=== PATIENT | male | born 1970 | race Hispanic/Latino ===

== ENCOUNTER 2022-06-27 11:44 | Emergency (ER) | payer SELFPAY ==
[2022-06-27 12:08] VITALS: BP 160/110; PULSE 69; RESP 14; TEMP 36.8; O2SAT 100
[2022-06-27 14:49] VITALS: BP 138/85; PULSE 62; RESP 17; TEMP 36.4; O2SAT 100
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
[2022-06-27 17:00] VITALS: BP 133/89; PULSE 64; RESP 15; O2SAT 100
[2022-06-27] MEDS: IBUPROFEN 600 MG TABLET PO (17:05)
--- NOTE | 2022-06-27 17:08 | PC.NURSE ---
Patient refused blood collection at 1708
--- NOTE | 2022-06-27 17:34 | PC.NURSE ---
Pt declines blood work, states I dont have insurance, and Im fine, I dont want labs. Provider made aware.
== END 2022-06-27 17:52 | disposition home or self-care (01) ==
PROVIDERS: Emergency Provider Physician Assistant
DX: M25.472 Effusion, left ankle (principal); M25.471 Effusion, right ankle
CPT/HCPCS: 99282; A9270

== ENCOUNTER 2022-07-21 13:48 | Emergency (ER) | payer SELFPAY ==
--- NOTE | 2022-07-21 13:54 | PC.NURSE ---
when talking with the patient more with the [facility] clinical nurse specialist pt requesting medication refill. pt states I was here about a month ago and received a really good medication that I am wanting again but unsure of what the name of the medication is. told pt that he is more than welcome to be seen by a provider but is not guaranteed that this medication will be refilled again. pt states he does not want to be seen and was just wanting the medication refilled. pt verbalized understanding and ambulated out of ED.
== END 2022-07-21 14:42 | disposition left against medical advice (07) ==
LOC: ANHED 14:05
DX: Z53.21 Procedure and treatment not carried out due to patient leaving prior to being seen by health care provider (principal)
CPT/HCPCS: 99199